=== PATIENT | male | born 1950 | race Caucasian/White ===

== ENCOUNTER 2017-05-03 14:29 | Emergency (ER) | payer MEDICAID ==
[~2017-05-03] VITALS: Ht 177.8 cm; Wt 135.8 kg
[2017-05-03] MEDS ORDERED: SODIUM CHLORIDE FLUSH 10ML SYR IVF ONE (15:30)
[2017-05-03] MEDS ORDERED: CLINDAMYCIN PMX 600MG/50ML 50 ML IVPB ONE (15:30)
[2017-05-03] MEDS ORDERED: CLINDAMYCIN PMX 600MG/50ML 0 ML ONE (15:34)
[2017-05-03] MEDS ORDERED: CLINDAMYCIN 150 MG/ML, 6ML ONE (15:47)
[2017-05-03 15:53] LABS: HEMATOCRIT 38.8 % (39.2-51.8); WHITE BLOOD COUNT 7.5 x10^3/uL (3.4-10)
[2017-05-03 16:04] VITALS: BP 136/60
[2017-05-03 16:05] LABS: BLOOD UREA NITROGEN 13 mg/dL (7-18)
== END 2017-05-03 16:56 | disposition home or self-care (01) ==
LOC: ED 16:40
DX: L03.114 Cellulitis of left upper limb (principal); E87.6 Hypokalemia; F11.10 Opioid abuse, uncomplicated; I10 Essential (primary) hypertension
CPT/HCPCS: 36415; 80048; 82040; 85025; 96365